=== PATIENT | female | born 1985 | race Two or more races ===

== ENCOUNTER 2017-04-08 06:26 | Inpatient (IN) | payer OTHER ==
[2017-04-08] VITALS (14 sets, daily range): BP systolic 99–116; BP diastolic 53–70
[~2017-04-08] VITALS: Ht 165.1 cm; Wt 78.9 kg
[~2017-04-08 06:26] MED LIST: ceFAZolin 1gm in D5W 55ml IVP ONE
[2017-04-08] MEDS ORDERED: NKM (07:17)
[2017-04-08] MEDS ORDERED: Lacri-Lube Opth Oint 3.5gm ONE (07:18)
[2017-04-08] MEDS ORDERED: Heparin 5000 units/ml inj ONE (07:18)
[2017-04-08] MEDS ORDERED: Thrombin 5000 units TOPIC ONE (07:18)
[2017-04-08] MEDS ORDERED: Bupivacaine w/Epi 0.5% 30ml Vial INJ ONE (07:18)
[2017-04-08] MEDS ORDERED: Vancomycin 1gm inj IVPB ONE (07:18)
[2017-04-08] MEDS ORDERED: Gelfoam Absorbable 1gm powder pkt TOPIC ONE (07:19)
[2017-04-08] MEDS ORDERED: Bacitracin 50000 Units Vial ONE (07:19)
[2017-04-08] MEDS ORDERED: Thrombin 5000 units spray kit TOPIC ONE (07:19)
[2017-04-08] MEDS ORDERED: NS Irrig 1000ml ONE (08:00)
[2017-04-08] MEDS ORDERED: Zemuron 50mg/5ml Inj IV ONE (08:00)
[2017-04-08] MEDS ORDERED: Sterile Water Irrig 1000ml IRRIG ONE (08:00)
[2017-04-08] MEDS ORDERED: fentaNYL 100 mcg/2 mL IV ONE (08:00)
[2017-04-08] MEDS ORDERED: LR 1000ml ONE (08:00)
[2017-04-08] MEDS ORDERED: Midazolam 2mg/2ml Inj ONE (08:00)
[2017-04-08] MEDS ORDERED: Propofol 10mg/ml 100ml btl IV ONE (08:00)
--- NOTE | 2017-04-08 08:51 | Pre-Procedure Note/Attestation ---
Pre-Procedure Note/Attestation Complete Prior to Procedure Procedure Narrative: ant post fusion with decompression L5S1 Indications for Procedure Pre-Operative Diagnosis: L5S1 Discopathy with radiculopathy Attestation I attest that I discussed the nature of the procedure; its benefits; risks and complications; and alternatives (and the risks and benefits of such alternatives ), prior to the procedure, with the patient (or the patient's legal passenger relations representative). I attest that, if there was a reasonable possibility of needing a blood transfusion, the patient (or the patient's legal passenger relations representative) was given the [facility] standardized written summary, pursuant to the Kraig Narinder Blood Safety Act ([place] Health and Safety Code # 1645, as amended). I attest that I re-evaluated the patient just prior to the surgery and that there has been no change in the patient's H&P, except as documented below: PRIMO LOCKWOOD Apr 08, 2017 08:51
--- NOTE | 2017-04-08 08:53 | Brief Operative Note ---
Immediate Post Operative Note Operative Note Pre-op Diagnosis: L5S1 Discopathy with radiculopathy Procedure: ant post fusion with decompression L5S1 Post-op Diagnosis: same as pre-op Findings: consistent w/pre-op dx studies Surgeon: marry Additional Surgeons: Frankie Lambert Anesthesiologist: Deidre Anesthesia: general Specimen: none Complications: none Condition: stable Estimated Blood Loss: volume - 100 Implant(s) used?: Yes - alphateck cage and plate, dual lamina ISP PRIMO LOCKWOOD Apr 08, 2017 08:53
--- NOTE | 2017-04-08 08:56 | Anethesia Preoperative Eval ---
Anesthesia Pre-op PMH/ROS General Date of Evaluation: Apr 08, 2017 Time of Evaluation: 07:40 Anesthesiologist: Deidre ASA Score: ASA 1 Mallampati Score Class I : Soft palate, uvula, fauces, pillars visible Class II: Soft palate, uvula, fauces visible Class III: Soft palate, base of uvula visible Class IV: Only hard plate visible Mallampati Classification: Class III Surgeon: Michelle Diagnosis: Lumbar HNP Surgical Procedure: ALIF, PLIF Family History: no anesthesia problems Allergies: Coded Allergies: No Known Allergies (Unverified , 04/07/17) Medications: see eMAR Past Medical History Cardiovascular: Denies: CAD, HTN, SD, arrhythmia, other, valve dz Pulmonary: Denies: COPD, AMADOR, asthma, other Gastrointestinal/Genitourinary: Denies: CRI, ESRD, GERD, other Neurologic/Psychiatric: Denies: CVA, TIA, dementia, depression/anxiety, other Endocrine: Denies: DM, hypothyroidism, other, steroids HEENT: Denies: WALES (L), WALES (R), cataract (L), cataract (R), glaucoma, other Hematology/Immune: Denies: DVT, anemia, bleeding disorder, other Musculoskeletal/Integumentary: Denies: DDD, DJD, OA, RA, edema, other PMH Narrative: Denies significant PMH PSxH Narrative: C/S Anesthesia Pre-op Phys. Exam Physician Exam Last Vital Signs Date Time Temp Pulse Resp B/P Pulse Ox O2 Delivery O2 Flow Rate FiO2 04/08/17 07:18 97.7 72 18 109/60 100 Room Air Constitutional: NAD Neurologic: CN 2-12 intact Cardiovascular: RRR, no M/R/G Respiratory: CTA Gastrointestinal: S/NT/ND Airway Exam Mallampati Score: Class III MO: full ROM: full Teeth: intact Anesthesia Pre-op A/P Labs Urine Test Test 04/08/17 06:35 Urine HCG, Qualitative Negative Studies Pre-op Studies: EKG - NSR Risk Assessment & Plan Assessment: Healthy female for ALIF, PLIF Plan: GETA, SedLine Status Change Before Surgery: No Pre-Antibiotics Drug: Ancef Given Within 1 Hr of Incision: Yes Time Given: 08:15 ONESIMO MON M.D. Apr 08, 2017 08:56
--- NOTE | 2017-04-08 08:57 | Immediate Post-Op Evaluation ---
Immediate Post-Op Evalulation Immediate Post-Op Evalulation Procedure: ALIF, PLIF Date of Evaluation: Apr 08, 2017 Time of Evaluation: 12:20 IV Fluids: 1800 Urinary Output: 300 Blood Pressure Systolic: 102 Blood Pressure Diastolic: 53 Pulse Rate: 90 Respiratory Rate: 20 O2 Sat by Pulse Oximetry: 99 Temperature (Fahrenheit): 98.4 Pain Score (1-10): 2 Nausea: No Vomiting: No Complications No complication Patient Status: awake, patent, extubated, none Hydration Status: adequate Drug: Ancef Given Within 1 Hr of Incision: Yes Time Given: 08:15 ONESIMO MON M.D. Apr 08, 2017 08:57
[2017-04-08] MEDS ORDERED: Bupivacaine 0.5% Inj 30 ml vial INJ ONE (09:12)
[2017-04-08] MEDS ORDERED: LR 1000ml 1,000 ML IVLG SCH (10:48)
[2017-04-08] MEDS ORDERED: LORazepam Inj 2mg/ml 1ml IV PRN (11:00)
[2017-04-08] MEDS ORDERED: LR 1000ml 1,000 ML IV SCH (11:00)
[2017-04-08] MEDS ORDERED: Meperidine 25mg/0.5ml Inj (FOR RIGORS ONLY) IV PRN (11:00)
[2017-04-08] MEDS ORDERED: Hydromorphone 0.5mg/0.5ml inj IVP PRN (11:00)
[2017-04-08] MEDS ORDERED: DiphenhydrAMINE 50mg/ml Inj IVP PRN (11:00)
[2017-04-08] MEDS ORDERED: traMADol 50mg tab ORAL PRN (12:00)
[2017-04-08] MEDS ORDERED: HYDROmorphone 1mg/ml Carpuject SUBQ PRN (12:00)
[2017-04-08] MEDS ORDERED: Milk of Magnesia 30ml Ud ORAL PRN (12:00)
[2017-04-08] MEDS ORDERED: Metoclopramide 10mg/2ml Inj IVP PRN (12:00)
[2017-04-08] MEDS ORDERED: Norco 5mg/325mg tab ORAL PRN (12:00)
[2017-04-08] MEDS ORDERED: Naloxone 0.4mg/ml Inj IVP PRN (12:00)
[2017-04-08] MEDS ORDERED: Norco 7.5mg/325mg tab ORAL PRN ×2 (12:00)
[2017-04-08] MEDS ORDERED: D5 1/2NS 1,000 ML IV SCH (14:30)
--- NOTE | 2017-04-08 14:40 | Diagnostic Imaging Report ---
Indication: Low back pain Technique: Intraoperative images Comparison: None Findings: Intraoperative images demonstrate surgical tool anterior to what is presumably L5-S1. Subsequent images demonstrate anterior fusion of L5-S1 with placement of a disc spacer and anterior fusion hardware. Subsequent images demonstrate a metal prosthesis between the L5 spinous process and the posterior aspect of S1 Impression: Intraoperative imaging, as described
[2017-04-08] MEDS: ceFAZolin sod 1 GM in D5W 55 ML IV SCH ×2 (15:14→23:30)
--- NOTE | 2017-04-08 16:45 | Operative Note - Dictated ---
DATE OF OPERATION: 04/08/2017 SURGEON: José Luis Martinez M.D. VASCULAR ACCESS SURGEON: Perry Lambert M.D. ANESTHESIOLOGIST: Kraig Jiang M.D. ANESTHESIA TYPE: General endotracheal anesthesia. PREOPERATIVE DIAGNOSIS: Disk herniation and discopathy L5-S1 with mechanical back pain and right lower extremity radiculopathy. POSTOPERATIVE DIAGNOSIS: Disk herniation and discopathy L5-S1 with mechanical back pain and right lower extremity radiculopathy. PROCEDURES: 1. Wide and radical anterior lumbar diskectomy with decompression anteriorly L5-S1. 2. Interbody fusion using PEEK structural cage (Alphatec as well as use of allograft slurry) Signafuse. 3. Anterior instrumentation using Alphatec plate. 4. Use of fluoroscopy. 5. Use of neurodiagnostic monitoring. ESTIMATED BLOOD LOSS: Minimal. COMPLICATIONS: None. FINDINGS: Advanced discogenic collapse with deteriorated disk L5-S1 with posterior central protrusion at L5-S1. INDICATIONS: The patient is a very pleasant woman, who sustained an injury to her lower back after having failed conservative measures and pain management. Surgical intervention was discussed and she elected to proceed. RISK NOTE: The patient was explained in detail the risks and benefits of surgery to include, but not be limited to those of bleeding, infection, damage to nerves, vessels, tendons, anesthetic risk, allergic reaction, aspiration, and possibly . The patient understood and wished to proceed. OPERATIVE PROCEDURE IN DETAIL: The patient was taken to the operative suite. After positive identification was made, she was positioned supine on to a radiolucent table. The abdomen was prepped and draped in usual sterile fashion after she was intubated by anesthesiologist. At this point, the vascular team proceeded to perform an anterior retroperitoneal exposure, which was performed through her prior Pfannenstiel incision. The anterior exposure will be dictated separately by Dr. Lambert. Once the anterior retroperitoneal space was exposed and the L5-S1 level was exposed, retractors were put into place. At that time, I then proceeded to perform a wide and radical diskectomy using standard technique by incising the anterior anulus using endplate Viry to separate the cartilaginous from bony endplates and then perform a discectomy. Please note that the disk was markedly deteriorated and collapsed. A 9 mm interbody spacers were put in place first on the right, which allowed for exposure of the left side of disk. Complete diskectomy was performed all the way down to the posterior annulus. The interbody spacer was then removed from the right, placed on the left, and this allowed for therapeutic decompression and diskectomy on the right side. Central extruded disk fragment was identified and was resected. There was a notable annular tear on the right side. At this point, copious irrigation was performed. A 10 mm interbody cage was trialed and noted to be in good overall position. Alphatec 10 mm cage was centrally packed with Signafuse and inserted into the disk space under fluoroscopic guidance with excellent positioning. At this point, a 10 mm anterior plate was then applied and all screw holes were serially drilled and appropriate sized screws were applied. Please note that, an additional Signafuse was placed at the periphery, both on the right and on the left in order to achieve an appropriate sentinel. At this point, decision was made to close. Closure will be dictated separately by Dr. Lambert. José Luis Martinez M.D. DR: JENI JOB#: [id number] CC:
[2017-04-08] MEDS: Pericolace tab ORAL SCH (17:12)
[2017-04-08] MEDS: Docusate 100mg cap ORAL SCH (17:12)
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
[2017-04-08] MEDS ORDERED: Norco 10mg/325mg tab ORAL PRN (20:00)
[2017-04-08] MEDS ORDERED: Chloraseptic Spray 20mL Bottle ORAL PRN (20:00)
[2017-04-08] MEDS ORDERED: oxyCODONE 5mg IR tab ORAL PRN (20:00)
[2017-04-08] MEDS: D5 1/2NS 1,000 ML IV SCH (21:56)
[2017-04-08] MEDS: HYDROmorphone 1mg/ml Carpuject SUBQ PRN (22:20)
[2017-04-09 00:08] VITALS: BP 106/58
[2017-04-09] MEDS: HYDROmorphone 1mg/ml Carpuject SUBQ PRN ×6 (01:32→20:43)
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
[2017-04-09] MEDS: Cyclobenzaprine 10mg Tab ORAL PRN ×2 (03:22→13:55)
[2017-04-09] MEDS: D5 1/2NS 1,000 ML IV SCH ×4 (03:40→19:18)
[2017-04-09 04:30] VITALS: BP 99/57
--- NOTE | 2017-04-09 06:33 | 48 Hour Post Anesthesia Eval ---
Post Anesthesia Evaluation Procedure: ALIF, PLIF Date of Evaluation: Apr 09, 2017 Time of Evaluation: 06:07 Blood Pressure Systolic: 99 0: 57 Pulse Rate: 92 Respiratory Rate: 20 Temperature (Fahrenheit): 100.0 O2 Sat by Pulse Oximetry: 99 Airway: patent Nausea: No Vomiting: No Pain Intensity: 2 Hydration Status: adequate Cardiopulmonary Status: Stable Mental Status/LOC: patient returned to baseline Follow-up Care/Observations: 0 Post-Anesthesia Complications: 0 Follow-up care needed: N/A Mandeep Joshi MD Apr 09, 2017 06:33
[2017-04-09 07:00] LABS: MEAN CORPUSCULAR HGB CONC 34.3 G/DL (32.0-36.0); MEAN CORPUSCULAR VOLUME 90 FL (80-99); MEAN PLATELET VOLUME 10.2 FL (6.5-10.1); PLATELET COUNT 216 K/UL (150-450); RED BLOOD COUNT 4.06 M/UL (4.20-5.40); RED CELL DISTRIBUTION WIDTH 11.4 % (11.6-14.8); WHITE BLOOD COUNT 11.7 K/UL (4.8-10.8)
[2017-04-09 08:00] VITALS: BP 102/58
[2017-04-09] MEDS: Docusate 100mg cap ORAL SCH ×2 (08:03→17:39)
[2017-04-09] MEDS: oxyCODONE 5mg IR tab ORAL PRN ×4 (08:03→19:15)
[2017-04-09] MEDS: Pericolace tab ORAL SCH ×2 (08:03→17:39)
[2017-04-09] MEDS: ceFAZolin sod 1 GM in D5W 55 ML IV SCH (08:05)
[2017-04-09 08:24] LABS: BAND NEUTROPHILS % (MANUAL) 0 % (0-8); BASOPHILS % (MANUAL) 0 % (0-2); EOSINOPHILS % (MANUAL) 0 % (0-3); LYMPHOCYTES % (MANUAL) 8 % (20-45); NEUTROPHILS % (MANUAL) 85 % (45-75); PLATELET ESTIMATE ADEQUATE; PLATELET MORPHOLOGY NORMAL; TOTAL CELLS COUNTED 100
[2017-04-09 12:00] VITALS: BP 105/68
[2017-04-09 16:00] VITALS: BP 100/51
[2017-04-09 20:00] VITALS: BP 102/54
--- NOTE | 2017-04-09 20:56 | Orthopedic Spine Progress Note ---
Ortho Spine - Progress Note Subjective Symptoms: c/o post-op back pain, c/o right leg pain, improved Objective Vital Signs: Last 24 Hour Vital Signs Date Time Temp Pulse Resp B/P Pulse Ox O2 Delivery O2 Flow Rate FiO2 04/09/17 16:00 98.2 87 19 100/51 96 Room Air 04/09/17 12:00 98.2 96 18 105/68 98 Nasal Cannula 04/09/17 08:00 97.9 91 18 102/58 04/09/17 06:33 92 20 99 04/09/17 04:30 100.0 92 20 99/57 99 Nasal Cannula 2.0 04/09/17 00:08 97.8 80 19 106/58 100 Nasal Cannula 2.0 I&O: Intake and Output 04/08/17 04/09/17 19:00 07:00 Intake Total 2355 ml 1500 ml Output Total 750 ml 1350 ml Balance 1605 ml 150 ml Intake IV Total 2355 ml 1500 ml Output Urine Total 700 ml 1350 ml Estimated Blood Loss 50 ml Wound: clean, intact Drains: none Neuro Status: abnormal - residual weakness rle, but able to move with painful stimulus Assessment Procedure Performed: ant post fusion with decompression L5S1 Plan Plan: PT, pain management Additional Comments: cont MAXO PRIMO LOCKWOOD Apr 09, 2017 20:56
--- NOTE | 2017-04-09 23:45 | Progress Note ---
DATE: 04/09/2017 ACUTE PAIN MANAGEMENT PHYSICIAN PROGRESS NOTE MEDICATIONS: Medication administration record reviewed. Medications include Tylenol, Mylanta, Flexeril, Benadryl, Colace, Dilaudid, milk of magnesia, Narcan, Zofran, Roxicodone, Protonix, Chloraseptic, Phenergan, and Radha-Colace. LABORATORY STUDIES: From this morning 04/09/2017 shows white count 12, hematocrit 37, and platelets 216,000. OBJECTIVE: VITAL SIGNS: Afebrile, pulse 96, respirations 18, blood pressure 105/68, and saturation 90% on supplemental oxygen. I spent over sixty minutes in consultation today. I saw the patient at the bedside with the nurse RN, Margoth after discussion with the surgeon, Dr. Martinez. The patient still has not yet passed positive flatus so she will remain on diet as NPO except for medications and ice chips. She has no nausea symptoms. She did have episodes of dizziness when trying to ambulate with physical therapy earlier this morning. She did succeed in the afternoon session of physical therapy to ambulate out of bed. She surprisingly has been requesting considerable doses of breakthrough pain medications, primarily alternating between breakthrough Dilaudid and oral oxycodone. She did trial Flexeril, which had no effect. I will discontinue this medication. Because she did tolerate the oxycodone with no adverse side effects, I will discontinue the hydrocodone to reduce the number of medications available and to streamline her medication list to reduce the risk of medication administration errors. I will double the dose of oxycodone from 5 mg to 10 mg for better efficacy. I hope that by alternating between the subcutaneous Dilaudid and oral oxycodone, her pain level will be more manageable so that she can better ambulate. She has been compliant using the incentive spirometer which I encouraged her to continue to use aggressively to reduce postoperative atelectasis. I did leave the a prescription for Percocet for the patient to fill for outpatient usage. At this point, her discharge will be delayed until she has better ambulation profile. We will need to see a better rastafari of bowel function after her ALIF anterior approach lumbar spine fusion surgery. We also will need to see the patient and reduce if not eliminate her parenteral opioid narcotics for analgesia before discharging to home. The patient's is very supportive and both the patient and her are agreeable with this plan. Jesus Pierre M.D. DR: Malika JOB#: [id number] CC:
[2017-04-10] VITALS: BP 98/55
--- NOTE | 2017-04-10 00:46 | Operative Note - Dictated ---
DATE OF OPERATION: 04/08/2017 VASCULAR SURGEON: Perry Lambert M.D. SPINE SURGEON: José Luis Martinez M.D. PREOPERATIVE DIAGNOSIS: Degenerative disc disease. POSTOPERATIVE DIAGNOSIS: Degenerative disc disease PROCEDURE PERFORMED: Anterior retroperitoneal exposure of L5-S1 vertebral interspace. INDICATIONS: The patient is a very pleasant woman, who was seen prior to surgery. She has been scheduled for anterior fusion L5-S1. She has prior via transverse lower abdominal incision. No history of deep venous thrombosis or bleeding complications as described. She has been made aware of the need for surgery by the direct discussion as well as the use of a cigarette roller. She understands possibly vascular injury, possible need for blood transfusion, and possible development of deep venous thrombosis. DESCRIPTION OF FINDINGS: A low transverse Pfannenstiel type incision was used. A left retroperitoneal approach was used. There is no peritoneal or ureteral violation. There is no vascular injury. Exposure of L5-S1 was obtained below the iliac bifurcation with retraction of left common iliac artery and vein superiorly and laterally. Fluoroscopy was used to confirm the appropriate level prior to instrumentation. On completion, the peritoneum and ureter were intact. Iliac vessels were intact and blood loss was less than 50 mL. DESCRIPTION OF PROCEDURE: The patient was taken to the operative room, general anesthesia was used. Intravenous antibiotics were given. The patient's abdomen was prepped and draped. An appropriate time-out was taken. A transverse incision made in the lower abdomen. Flaps were raised superiorly. The anterior fascia was incised longitudinally in the midline. A plane was then identified posterior to the left rectus abdominis and developed posterolaterally towards the patient's left. The retroperitoneal space entered below the arcuate line. The peritoneum ureter mobilized towards the patient's right exposing the left common iliac vessels. Dissection was carried medial to the left common iliac vein and the middle sacral artery and vein were identified and ligated vascular clips and divided. This allowed us to then retract the left iliac vessels superiorly and laterally at the anterior surface of L5 and S1. The Omni retractor set in place Dewitt blades were used to retract laterally and then fluoroscopy used to confirm the appropriate level. Instrumentation was performed. L5-S1 dictated separately. On completion, the peritoneum and ureter were then released and intact. The iliac vessels were intact. Anterior fascia was then closed using number 1 PDS in running fashion and skin subcutaneous tissue closed with 3-0 Vicryl and 4-0 Monocryl running subcuticular closure technique. Estimated blood loss less than 100 mL. Complications none. Perry Lambert M.D. DR: Alexey JOB#: [id number] CC:
[2017-04-10] MEDS: oxyCODONE 5mg IR tab ORAL PRN ×2 (01:59→17:35)
[2017-04-10] MEDS: D5 1/2NS 1,000 ML IV SCH ×2 (02:00→11:08)
[2017-04-10 04:00] VITALS: BP 102/58
[2017-04-10] MEDS: HYDROmorphone 1mg/ml Carpuject SUBQ PRN ×3 (07:53→20:29)
[2017-04-10 08:26] VITALS: BP 104/59
[2017-04-10] MEDS: Docusate 100mg cap ORAL SCH ×2 (09:57→17:34)
[2017-04-10] MEDS: Pericolace tab ORAL SCH ×2 (09:58→17:34)
[2017-04-10] MEDS ORDERED: Tubing IV Secondary IV ONE (10:33)
[2017-04-10] MEDS ORDERED: D5 1/2NS 1000ml IV ONE (10:33)
[2017-04-10 12:00] VITALS: BP 105/54
[2017-04-10 16:00] VITALS: BP 110/65
--- NOTE | 2017-04-10 18:50 | Orthopedic Spine Progress Note ---
Ortho Spine - Progress Note Subjective Symptoms: c/o post-op back pain, improved - as compared to pre-op Objective Vital Signs: Last 24 Hour Vital Signs Date Time Temp Pulse Resp B/P Pulse Ox O2 Delivery O2 Flow Rate FiO2 04/10/17 16:00 98.0 109 20 110/65 98 Room Air 04/10/17 12:00 98.6 106 20 105/54 95 Room Air 04/10/17 08:26 99.0 104 20 104/59 97 Room Air 04/10/17 04:00 98.2 106 16 102/58 95 Room Air 04/10/17 00:00 98.6 104 18 98/55 94 Room Air 04/09/17 20:00 98.4 104 18 102/54 95 Room Air I&O: Intake and Output 04/09/17 04/10/17 19:00 07:00 Intake Total 805 ml Output Total 1250 ml Balance -445 ml IV Total 805 ml Output Urine Total 1250 ml # Voids 1 2 Wound: clean, intact Drains: none Neuro Status: abnormal - weak rfoot, but better than preop Assessment Procedure Performed: ant post fusion with decompression L5S1 Plan Plan: PT, pain management, discharge plan PRIMO LOCKWOOD Apr 10, 2017 18:50
[2017-04-10 20:00] VITALS: BP 103/62
[2017-04-11] VITALS: BP 94/45
[2017-04-11] MEDS: oxyCODONE 5mg IR tab ORAL PRN ×5 (00:34→21:10)
[2017-04-11 04:00] VITALS: BP 85/52
[2017-04-11 08:12] VITALS: BP 96/56
[2017-04-11] MEDS: Docusate 100mg cap ORAL SCH ×2 (08:58→17:08)
[2017-04-11] MEDS: Pericolace tab ORAL SCH ×2 (08:58→17:08)
--- NOTE | 2017-04-11 09:00 | Progress Note ---
DATE: 04/10/2017 ACUTE PAIN MANAGEMENT PHYSICIAN PROGRESS NOTE MEDICATIONS: Medication administration record reviewed. Medications include IV fluids, Colace, Radha-Colace, and Protonix. Current medications include Narcan, Tylenol, milk of magnesia, Benadryl, Chloraseptic spray, Dilaudid, Zofran, Mylanta, Phenergan, and oxycodone. LABORATORY STUDIES: Laboratory studies from yesterday 04/09/2017 shows white count 12, hematocrit 37, and platelets 216,000. OBJECTIVE: VITAL SIGNS: Afebrile. Pulse 104, respirations 20, blood pressure 104/59, and oxygen saturation 97% on room air. I spent over 60 minutes in consultation today. I discussed the case in detail with the surgeon, Dr. Martinez. I saw the patient at bedside. I discussed the case with the nurse RN, Arabella. Olson catheter was removed and the patient has been ambulating out of bed to the bedside commode. Beyond that, the patient has been walking sparingly and I did encourage much more aggressive intervention to help with her recovery. I asked the nurse to have physical therapy leave a front-wheel walker in the room to encourage ambulation. The patient still has not yet passed positive flatus. I believe, after anterior approach lumbar spine fusion surgery, we will maintain her on IV fluids for hydration without advancing her diet. She remains on NPO except for ice, chips, and medications. She has been tolerating the oxycodone 10 mg. I encouraged the nurse to suggest using the oral oxycodone much more frequently than the breakthrough Dilaudid, which she needs to get to request every few hours. The patient has no signs of fever and has been compliant using her incentive spirometer, sequential compression devices remain in place for DVT prophylaxis. I did give a prescription for Percocet for outpatient usage. At this point, we will continue to wait for evidence of christianity of bowel function after her . Once she passes flatus, then we will advance the diet quickly to wean her off the parental Dilaudid to help expedite her hospital discharge. Jesus Pierre M.D. DR: SHANNON JOB#: [id number] CC:
[2017-04-11] MEDS: LR 1000ml 1,000 ML IV SCH ×2 (10:24→20:55)
[2017-04-11 12:28] VITALS: BP 96/53
[2017-04-11 16:28] VITALS: BP 94/53
[2017-04-11 16:34] LABS: BASOPHILS % (AUTO) 1.1 % (0.0-2.0); EOSINOPHILS % (AUTO) 1.2 % (0.0-3.0); LYMPHOCYTES % (AUTO) 14.7 % (20.0-45.0); MEAN CORPUSCULAR HGB CONC 34.8 G/DL (32.0-36.0); MEAN CORPUSCULAR VOLUME 89 FL (80-99); MEAN PLATELET VOLUME 9.3 FL (6.5-10.1); MONOCYTES % (AUTO) 7.6 % (1.0-10.0); NEUTROPHILS % (AUTO) 75.4 % (45.0-75.0); PLATELET COUNT 191 K/UL (150-450); RED BLOOD COUNT 3.63 M/UL (4.20-5.40); RED CELL DISTRIBUTION WIDTH 11.2 % (11.6-14.8); WHITE BLOOD COUNT 9.3 K/UL (4.8-10.8)
[2017-04-11 16:47] LABS: ALANINE AMINOTRANSFERASE 14 U/L (3-33); ALBUMIN/GLOBULIN RATIO 0.9 (1.0-2.7); ANION GAP 8 (5-15); ASPARTATE AMINO TRANSFERASE 17 U/L (5-40); CALCIUM 8.5 mg/dL (8.6-10.2); CARBON DIOXIDE 29 mEQ/L (20-30); CHLORIDE 102 mEQ/L (98-107); CREATININE 0.8 mg/dL (0.5-0.9); GLOMERULAR FILTRATION RATE > 60 mL/min (>60); HEMOLYSIS 2; POTASSIUM 3.8 mEQ/L (3.4-4.9); SODIUM 139 mEQ/L (135-145); TOTAL PROTEIN 6.1 g/dL (6.6-8.7)
--- NOTE | 2017-04-11 17:59 | Orthopedic Spine Progress Note ---
Ortho Spine - Progress Note Subjective Symptoms: c/o post-op back pain, improved - as compared to pre-op, other Objective Vital Signs: Last 24 Hour Vital Signs Date Time Temp Pulse Resp B/P Pulse Ox O2 Delivery O2 Flow Rate FiO2 04/11/17 16:28 99.2 78 19 94/53 97 Room Air 04/11/17 12:28 99.1 94 22 96/53 100 Room Air 04/11/17 08:12 98.0 83 20 96/56 100 Room Air 04/11/17 04:00 98.2 95 18 85/52 96 Room Air 04/11/17 00:00 97.7 89 17 94/45 95 Room Air 04/10/17 20:00 99.2 102 20 103/62 95 Room Air I&O: Intake and Output 04/10/17 04/11/17 19:00 07:00 Intake Total 240 ml 240 ml Balance 240 ml 240 ml Intake Oral 240 ml 240 ml # Voids 1 1 Wound: clean, intact Drains: none Neuro Status: stable Assessment Procedure Performed: ant post fusion with decompression L5S1 Plan Plan: PT, pain management, discharge plan - in am? Additional Comments: light-headed hypotensive NS bolus promote mobilization PRIMO LOCKWOOD Apr 11, 2017 17:59
[2017-04-11 20:00] VITALS: BP 96/59
[2017-04-12] VITALS: BP 109/66
[2017-04-12] MEDS: oxyCODONE 5mg IR tab ORAL PRN ×3 (00:07→09:12)
--- NOTE | 2017-04-12 00:30 | Progress Note ---
DATE: 04/11/2017 ACUTE PAIN MANAGEMENT PHYSICIAN PROGRESS NOTE MEDICATIONS: Medication administration record reviewed. Medications include Tylenol, Mylanta, Benadryl, Colace, IV fluids, milk of magnesia, Narcan, Zofran, Roxicodone, Protonix, Chloraseptic, Phenergan, and Radha-Colace. OBJECTIVE: VITAL SIGNS: Afebrile, pulse 94, respirations 22, oxygen saturation 100% on room air, and blood pressure 96/53. LABORATORY STUDIES: Laboratory studies from today are pending. Yesterday's hematocrit was 37. I spent over 60 minutes in consultation today. I discussed the case with the surgeon, Dr. Martinez along with the nurse RN, Arabella. The patient was seen today laying in bed in the left lateral decubitus position. She states that her pain is improving. However, she has persistent complaint of dizziness especially with standing and intermittent nausea. Her systolic blood pressure has been in the range of 85 to 95 much of the day. Apparently, her intravenous access infiltrated yesterday and IV was not replaced. It was hopeful that the patient would advance her oral intake since she had started passing flatus and her diet was advanced. However, the patient was not taking much oral intake and I suspect that she had significant intravascular relative dehydration. I had the nursing insert an IV and start her on lactated Ringer's at [address] Rosa, Internal Medicine, was contacted and will be evaluating the patient later. A front wheel walker remained at the bedside; however, the patient has reluctantly been getting out of bed. She primarily has been only walking to the restroom with assistance. I did encourage the patient to ambulate much more frequently when the dizziness subsides and when asking for assistance. With the pain complaints improving, I discontinued off parental narcotics including Dilaudid. She has been rather asking for the oral oxycodone pills, I will therefore decrease the dose to 5 mg, so that there may be less of a chance for dizziness after taking the narcotics. Jesus Pierre M.D. DR: Mayuri JOB#: [id number] CC:
[2017-04-12 04:00] VITALS: BP 99/57
[2017-04-12] MEDS: LR 1000ml 1,000 ML IV SCH (06:29)
[2017-04-12 07:59] VITALS: BP 108/61
[2017-04-12] MEDS: Pericolace tab ORAL SCH (09:09)
[2017-04-12] MEDS: Docusate 100mg cap ORAL SCH (09:09)
--- NOTE | 2017-04-12 10:46 | Progress Note ---
DATE: 04/12/2017 ACUTE PAIN MANAGEMENT PHYSICIAN PROGRESS NOTE MEDICATIONS: Medication administration record reviewed. Medications include Tylenol, Mylanta, Benadryl, Colace, Lactated Ringer's, milk of magnesia, Narcan, Zofran, Roxicodone, Protonix, Chloraseptic spray, Phenergan, and Radha-Colace. LABORATORY STUDIES: Laboratory studies from yesterday 04/11/2017 shows normal white count at 9, hematocrit 32, and platelets 191,000. Sodium 139, potassium 3.8, chloride 102, bicarbonate 29, BUN 5, creatinine 0.8, glucose 108, calcium 8.5. 0.4. AST 17, ALT 14, and alkaline phosphatase 62. Troponin 6.1. Albumin 3.0. OBJECTIVE: VITAL SIGNS: Within normal limits. Afebrile. Pulse 77, respirations 20, blood pressure 108/61, and oxygen saturation 98% on room air. I spent over 60 minutes in consultation today. I saw the patient at bedside with the nurse RN, Marlen, who translated Farsi. The patient's was also at the bedside. I left a prescription for Percocet for outpatient usage, quantity of 60. The patient still has complaints of intermittent dizziness and nausea. She remains lying in bed, per routine. I did strongly encourage her and her for much greater ambulation and out of bed. The patient seems to be able to raise the head out of the bed from flat to 60 degrees without any difficulties or dizziness. The patient continued on IV fluids. As her oral intake remains poor as she tolerated a clear liquid her oral intake quantity is low. I did ask the nursing team to advance her diet to regular. I stopped the dilaudid injections and had ordered 5 mg oxycodone which seems to be adequate for pain control. The last dose of Zofran was at midnight. The patient has been compliant using her incentive spirometer. Her vital signs and laboratory studies are all within normal limits. By report, the hospitalists will be seeing the patient later to help encourage oral intake. Her blood pressure has been in the 95/60 range the past 24 hours. Lowering dose of the oxycodone from 10 mg to 5 mg seems to have helped the dizziness somewhat. At this point, I would continue her current analgesic regimen with oral oxycodone. I will defer discharge plan to the surgeon, Dr. Martinez. Jesus Pierre M.D. DR: SOCO JOB#: [id number] CC:
[2017-04-12] MEDS ORDERED: LR 1000ml ONE (10:47)
[2017-04-12] MEDS ORDERED: Lactulose 20gm/30ml UDC ORAL ONE (11:00)
--- NOTE | 2017-04-12 11:08 | Consultation ---
Consult Note Consult Note Consult dictated # [id number] BRIGIDA WEI Apr 12, 2017 11:08
[2017-04-12 12:00] VITALS: BP 104/61
[2017-04-12 12:10] LABS: THYROID STIMULATING HORMONE 0.551 uIU/mL (0.300-4.500)
[2017-04-12] MEDS ORDERED: PERCOCET 10-321 EAC1 PO ×2 (14:41→14:43)
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
[2017-04-14 09:38] LABS: CORTISOL 10.7 ug/dL
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
== END 2017-04-12 15:15 | disposition home or self-care (01) | DRG 455 ==
LOC: SDSOVERFLO 06:26 → 3E 14:05
PROC: 01NB0ZZ Release Lumbar Nerve, Open Approach (ICD-10-PCS; principal; 2017-04-08 08:00)
PROC: 0ST40ZZ Resection of Lumbosacral Disc, Open Approach (ICD-10-PCS; principal; 2017-04-08 08:00)
PROC: 0SG30A0 Fusion of Lumbosacral Joint with Interbody Fusion Device, Anterior Approach, Anterior Column, Open Approach (ICD-10-PCS; principal; 2017-04-08 08:00)
PROC: 0SG30AJ Fusion of Lumbosacral Joint with Interbody Fusion Device, Posterior Approach, Anterior Column, Open Approach (ICD-10-PCS; principal; 2017-04-08 08:00)
DX: M51.17 Intervertebral disc disorders with radiculopathy, lumbosacral region (principal); I95.9 Hypotension, unspecified; M21.371 Foot drop, right foot; E66.9 Obesity, unspecified; V89.2XXS Person injured in unspecified motor-vehicle accident, traffic, sequela
CPT/HCPCS: 36415; 72020; 76001; 80053; 81025; 82533; 84443; 85007; 85025; 86850; 86900; 86901; 87081; 94003; 94150; C9399; J2180; J2250; J2405